=== PATIENT | male | born 1975 | race Caucasian/White ===

== ENCOUNTER 2021-02-14 06:49 | Inpatient (IN) | payer SELFPAY ==
[~2021-02-14] VITALS: Ht 185.4 cm; Wt 109.4 kg
[2021-02-14] MEDS ORDERED: IV NORMAL SALINE 1000ML BAG 1,000 ML IV SCH (07:15)
[2021-02-14] MEDS ORDERED: KETOROLAC 30 MG/ML VIAL. IVP ONE (07:15)
[2021-02-14] MEDS ORDERED: ONDANSETRON PF 4 MG/2 ML VIAL. IVP ONE (07:15)
--- NOTE | 2021-02-14 07:52 | PHYS DOC ---
Past Medical History Past Medical History IV drug use Past Surgical History: No Surgical History Smoking Status: Current Every Day Smoker Alcohol Use: None Drug Use: Amphetamine, Marijuana General Adult EDM: Chief Complaint: NAUSEA/VOMITING/DIARRHEA HPI: HPI: 45-year-old male with a history of IV drug abuse presents the emergency department complaining of bilateral mid back pain, sweats, nausea, vomiting, diarrhea for the last 24 hours. He denies any abdominal pain, shortness of breath, cough, recent drug use. He has not been vaccinated for Covid. He denies any recent travel, blood in the diarrhea or vomit, recent hospitalizations, recent antibiotic use Review of Systems: Review of Systems: Constitutional: Admits to chills, fatigue, denies fever. Eyes: Denies change in vision, pain. HENT: Denies congestion or sore throat. Respiratory: Denies cough or shortness of breath. Cardiovascular: Denies chest pain or edema. GI: Denies abdominal pain, admits to nausea vomiting diarrhea : Admits to dark-colored urine, denies pain with urination. Musculoskeletal: Denies extremity pain, or trauma. Skin: Denies rash, skin change. Neurologic: Denies headache, focal weakness. Psychiatric: Denies depression or anxiety. All other systems reviewed as negative except for what was mentioned in the HPI. Heart Score: C/O Chest Pain: No Current Medications: Current Medications Medications (Trade) Dose Ordered Sig/[facility] Start Time Stop Time Status Last Admin Dose Admin Ketorolac Tromethamine (Toradol 30mg Vial) 15 mg 1X ONCE 02/14/21 07:15 02/14/21 07:16 UNV Ondansetron HCl (Zofran) 4 mg 1X ONCE 02/14/21 07:15 02/14/21 07:16 UNV Sodium Chloride 1,000 ml @ 1,000 mls/hr Q1H 02/14/21 07:15 02/14/21 08:14 UNV Allergies: Allergies: Nka Physical Exam: PE: Constitutional: No acute distress, non-toxic appearance. HENT: Atraumatic, bilateral external ears normal, nose normal. Forehead this way to palpation Eyes: PERRLA, EOMI, conjunctiva normal, no discharge. Neck: Normal range of motion, supple, no stridor. Cardiovascular: Heart rate regular rhythm. 2+ radial pulses Lungs & Thorax: No respiratory distress, symmetrical expansion. Abdomen: Soft, no tenderness Skin: Warm, dry. Extremities: No tenderness, no cyanosis, ROM intact, no edema. Neurologic: Alert and oriented X 3, normal motor function, normal sensory function, no focal deficits noted. Non ataxic gait. GCS 15. Psychologic: Affect normal, judgment normal, mood normal. Current Patient Data: Labs: Laboratory Tests Test 02/14/21 07:24 02/14/21 07:37 02/14/21 07:39 Urine Collection Type Unknown Urine Color [facility] Urine Clarity Clear Urine pH 6.0 (<5.0-8.0) Urine Specific [place] 1.025 (1.000-1.030) Urine Protein 30 mg/dL (NEG-TRACE) Urine Glucose (UA) 100 mg/dL (NEG) Urine Ketones (Stick) >=80 mg/dL (NEG) Urine Blood Negative (NEG) Urine Nitrite Negative (NEG) Urine Bilirubin Large (NEG) Urine Urobilinogen Dipstick 4.0 mg/dL (0.2 mg/dL) Urine Leukocyte Esterase Moderate (NEG) Urine RBC 0 /HPF (0-2) Urine WBC 5-10 /HPF (0-4) Urine Squamous Epithelial Cells Mod /LPF Urine Bacteria 0 /HPF (0-FEW) Urine Mucus Mod /LPF Urine Opiates Screen Neg (NEG) Urine Methadone Screen Pos (NEG) Urine Barbiturates Neg (NEG) Urine Phencyclidine Screen Neg (NEG) Urine Amphetamine/Methamphetamine Neg (NEG) Urine Benzodiazepines Screen Pos (NEG) Urine Cocaine Screen Neg (NEG) Urine Cannabinoids Screen Neg (NEG) Urine Ethyl Alcohol Neg (NEG) White Blood Count 6.7 x10^3/uL (4.0-11.0) Red Blood Count 5.54 x10^6/uL (4.30-5.70) Hemoglobin 16.9 g/dL (13.0-17.5) Hematocrit 48.6 % (39.0-53.0) Mean Corpuscular Volume 88 fL (79-100) Mean Corpuscular Hemoglobin 30 pg (25-35) Mean Corpuscular Hemoglobin Concent 35 g/dL (31-37) Red Cell Distribution Width 13.9 % (11.5-14.5) Platelet Count 149 x10^3/uL (140-400) Neutrophils (%) (Auto) 67 % (31-73) Lymphocytes (%) (Auto) 18 % (24-48) Monocytes (%) (Auto) 11 % (0-9) Eosinophils (%) (Auto) 4 % (0-3) Basophils (%) (Auto) 1 % (0-3) Neutrophils # (Auto) 4.5 x10^3/uL (1.8-7.7) Lymphocytes # (Auto) 1.2 x10^3/uL (1.0-4.8) Monocytes # (Auto) 0.8 x10^3/uL (0.0-1.1) Eosinophils # (Auto) 0.2 x10^3/uL (0.0-0.7) Basophils # (Auto) 0.0 x10^3/uL (0.0-0.2) Sodium Level 138 mmol/L (136-145) Potassium Level 4.2 mmol/L (3.5-5.1) Chloride Level 98 mmol/L (98-107) Carbon Dioxide Level 25 mmol/L (21-32) Anion Gap 15 (6-14) Blood Urea Nitrogen 11 mg/dL (8-26) Creatinine 0.7 mg/dL (0.7-1.3) Estimated GFR (Cockcroft-Gault) 121.4 BUN/Creatinine Ratio 16 (6-20) Glucose Level 165 mg/dL (70-99) Calcium Level 9.4 mg/dL (8.5-10.1) Total Bilirubin 7.4 mg/dL (0.2-1.0) Aspartate Amino Transf (AST/SGOT) 1838 U/L (15-37) Alanine Aminotransferase (ALT/SGPT) 3820 U/L (16-63) Alkaline Phosphatase 341 U/L (46-116) Creatine Kinase 34 U/L (39-308) Total Protein 8.2 g/dL (6.4-8.2) Albumin 3.5 g/dL (3.4-5.0) Albumin/Globulin Ratio 0.7 (1.0-1.7) Lipase 81 U/L (73-393) Acetaminophen Level < 2 mcg/ml (10-30) Acetaminophen Last Dose Date Unknown Acetaminophen Last Dose Time Unknown SARS-CoV-2 RNA (YUMIKO) Negative (Negative) SARS-CoV-2 Antigen (Rapid) Negative (NEGATIVE) Vital Signs: Vital Signs Date Time Temp Pulse Resp B/P (MAP) Pulse Ox O2 Delivery O2 Flow Rate FiO2 02/14/21 07:10 98.0 86 16 133/93 99 Nasal Cannula 98.0 Radiology/Procedures: Radiology/Procedures: Study: XR CHEST 1V Indication: Flank pain. Comparison: None. Findings: The cardiomediastinal silhouette and ana are within normal limits. No localized airspace opacity, pleural effusion or pneumothorax. Impression: No acute radiographic abnormality of the chest. Electronically signed by: ROQUE REYNOLDS MD (02/14/2021 7:59 AM) PROCEDURE: ABDOMEN COMPLETE EXAM: Abdomen sonogram complete. HISTORY: Elevated alkaline phosphatase. Pain. TECHNIQUE: Sonographic imaging of the abdomen was performed. COMPARISON: None. FINDINGS: The liver is enlarged. There is hepatic steatosis. No focal hepatic lesion is seen. The gallbladder is unremarkable. The common bile duct is normal in caliber. The kidneys are normal in size. The spleen is enlarged, measuring 21 cm in maximum dimension. The pancreas, aorta and vena cava are partially obscured due to bowel gas IMPRESSION: 1. Hepatomegaly and hepatic steatosis. 2. Splenomegaly. Electronically signed by: Milady Duron MD (02/14/2021 10:03 AM) PROCEDURE: CT ABD PELV W/ IV CONTRST ONLY EXAMINATION: CT abdomen and pelvis with IV contrast. INDICATION:45 years, Male, flank pain, transaminitis. TECHNIQUE: Axial CT images of the abdomen and pelvis were obtained. Coronal and sagittal reformatted performed. COMPARISON: Ultrasound dated 02/14/2021. Exposure: One or more of the following individualized dose reduction techniques were utilized for this examination: 1. Automated exposure control 2. Adjustment of the mA and/or kV according to patient size 3. Use of iterative reconstruction technique. FINDINGS: LOWER CHEST: Unremarkable ABDOMEN/PELVIS: Mild hepatomegaly with diffuse steatosis, measures 18.8 cm in length.. No suspicious focal hepatic lesion. Mild gallbladder hydrops. No calcified cholelithiasis or pericholecystic fat stranding. No gallbladder wall thickening. No biliary ductal dilation. Similar splenomegaly measures up to 17.7 cm in length. Mildly atrophic pancreatic parenchyma with fat infiltration. No adrenal nodule. No hydronephrosis or nephrolithiasis in either kidney. No bowel obstruction or wall thickening. Uncomplicated duodenal diverticulum. Colonic diverticulosis without diverticulitis. Normal appendix. Normal caliber abdominal aorta. Mesenteric arteries and portal vein are patent. No pneumoper itoneum or ascites. Prominent to mildly enlarged periportal and portacaval lymph nodes, likely reactive. Mildly enlarged preaortic lymph node measures 1.4 cm in short axis (series 2 image 47). Unremarkable urinary bladder. Coarse calcifications in the posterior. MUSCULOSKELETAL: No acute osseous process. Small fat-containing umbilical and periumbilical hernias. IMPRESSION: 1. No acute abnormality in the abdomen or pelvis, specifically no obstructive uropathy. 2. Hepatosplenomegaly with mild hepatic steatosis. 3. Few colonic diverticulosis without diverticulitis. 4. Mildly enlarged preaortic lymph node, nonspecific. Electronically signed by: Dannielle Guerra MD (02/14/2021 11:37 AM) Course & Med Decision Making: Course & Med Decision Making Labs are revealing for transaminitis of unknown origin, differential including viral hepatitis, further labs to follow with GI consult. Acetaminophen level was normal and patient does not have admitted risk of occult acetaminophen overdose. Patient does have a history of IV drug abuse. Patient will be admitted to Dr. Mccoy Departure Departure Impression: Primary Impression: Transaminitis Disposition: ADMITTED INPATIENT Admitting Physician: MEDINA Ortega) Condition: STABLE Referrals: NO PCP (PCP) DELANEY BENOIT DO Feb 14, 2021 07:52
[2021-02-14 07:57] LABS: BASO % 1 % (0-3); EOS # 0.2 x10^3/uL (0.0-0.7); EOS % 4 % (0-3); HEMATOCRIT 48.6 % (39.0-53.0); HEMOGLOBIN 16.9 g/dL (13.0-17.5); LYMPH # 1.2 x10^3/uL (1.0-4.8); LYMPH % 18 % (24-48); MEAN CORPUSCULAR HEMOGLOBIN 30 pg (25-35); MEAN CORPUSCULAR HGB CONC 35 g/dL (31-37); MEAN CORPUSCULAR VOLUME 88 fL (79-100); MONO # 0.8 x10^3/uL (0.0-1.1); MONO % 11 % (0-9); NEUT # 4.5 x10^3/uL (1.8-7.7); NEUT % 67 % (31-73); PLATELET COUNT 149 x10^3/uL (140-400); RED BLOOD COUNT 5.54 x10^6/uL (4.30-5.70); RED CELL DISTRIBUTION WIDTH 13.9 % (11.5-14.5); WHITE BLOOD COUNT 6.7 x10^3/uL (4.0-11.0)
[2021-02-14] MEDS ORDERED: IV NORMAL SALINE 1000ML BAG 1,000 ML IV ONE (08:00)
--- NOTE | 2021-02-14 08:01 | RAD ---
Study: XR CHEST 1V Indication: Flank pain. Comparison: None. Findings: The cardiomediastinal silhouette and ana are within normal limits. No localized airspace opacity, pl eural effusion or pneumothorax. Impression: No acute radiographic abnormality of the chest. Electronically signed by: ROQUE REYNOLDS MD (02/14/2021 7:59 AM) [id number]
[2021-02-14 08:11] LABS: BILIRUBIN,URINE LARGE (NEG); CLARITY,URINE CLEAR; COLOR,URINE ORANGE; NITRITE,URINE NEGATIVE (NEG); PROTEIN,URINE 30 mg/dL (NEG-TRACE)
[2021-02-14 08:12] LABS: CALCIUM 9.4 mg/dL (8.5-10.1); CREATININE 0.7 mg/dL (0.7-1.3); GFR 121.4; POTASSIUM 4.2 mmol/L (3.5-5.1)
[2021-02-14 08:23] LABS: ALBUMIN 3.5 g/dL (3.4-5.0); ALBUMIN/GLOBULIN RATIO 0.7 (1.0-1.7); TOTAL BILIRUBIN 7.4 mg/dL (0.2-1.0); TOTAL PROTEIN 8.2 g/dL (6.4-8.2)
[2021-02-14 08:28] LABS: BACTERIA,URINE 0 /HPF (0-FEW); RBC,URINE 0 /HPF (0-2)
[2021-02-14 08:30] LABS: BARBITURATES NEG (NEG); BENZODIAZEPINES POS (NEG); CANNABINOIDS NEG (NEG); COCAINE NEG (NEG); METHADONE POS (NEG); OPIATES NEG (NEG); PHENCYCLIDINE NEG (NEG)
[2021-02-14 08:33] LABS: AMPHETAMINE/METHAMPHETAMINE NEG (NEG)
--- NOTE | 2021-02-14 10:06 | RAD ---
EXAM: Abdomen sonogram complete. HISTORY: Elevated alkaline phosphatase. Pain. TECHNIQUE: Sonographic imaging of the abdomen was performed. COMPARISON: None. FINDINGS: The liver is enlarged. There is hepatic steatosis. No focal hepatic lesion is seen. The gal lbladder is unremarkable. The common bile duct is normal in caliber. The kidneys are normal in size. The spleen is enlarged, measuring 21 cm in maximum dimension. The pancreas, aorta and vena cava are p artially obscured due to bowel gas IMPRESSION: 1. Hepatomegaly and hepatic steatosis. 2. Splenomegaly. Electronically signed by: Milady Duron MD (02/14/2021 10:03 AM) [id number]
[2021-02-14 10:37] LABS: ACETAMIN < 2 mcg/ml (10-30)
[2021-02-14] MEDS ORDERED: CONTRAST GIVEN. MC PRN (11:15)
[2021-02-14] MEDS ORDERED: IOHEXOL 300 MG/ML 100ML VIAL. IV ONE (11:15)
--- NOTE | 2021-02-14 11:40 | RAD ---
EXAMINATION: CT abdomen and pelvis with IV contrast. INDICATION:45 years, Male, flank pain, transaminitis. TECHNIQUE: Axial CT images of the abdomen and pelvis were obtained. Coronal and sagittal reformatted performed. COMPARISON: Ultrasound dated 02/14/2021. Exposure: One or more of the following individualized dose reduction techniques were utilized for thi s examination: 1. Automated exposure control 2. Adjustment of the mA and/or kV according to patient size 3. Use of iterative reconstruction technique. FINDINGS: LOWER CHEST: Unremarkable ABDOMEN/PELVIS: Mild hepatomegaly with diffuse steatosis, measures 18.8 cm in length.. No suspicious focal hepatic le yvonne. Mild gallbladder hydrops. No calcified cholelithiasis or pericholecystic fat stranding. No gall bladder wall thickening. No biliary ductal dilation. Similar splenomegaly measures up to 17.7 cm in l ength. Mildly atrophic pancreatic parenchyma with fat infiltration. No adrenal nodule. No hydronephro sis or nephrolithiasis in either kidney. No bowel obstruction or wall thickening. Uncomplicated duodenal diverticulum. Colonic diverticulosis without diverticulitis. Normal appendix. Normal caliber abdominal aorta. Mesenteric arteries and port al vein are patent. No pneumoperitoneum or ascites. Prominent to mildly enlarged periportal and vladimir caval lymph nodes, likely reactive. Mildly enlarged preaortic lymph node measures 1.4 cm in short axi s (series 2 image 47). Unremarkable urinary bladder. Coarse calcifications in the posterior. MUSCULOSKELETAL: No acute osseous process. Small fat-containing umbilical and periumbilical hernias. IMPRESSION: 1. No acute abnormality in the abdomen or pelvis, specifically no obstructive uropathy. 2. Hepatosplenomegaly with mild hepatic steatosis. 3. Few colonic diverticulosis without diverticulitis. 4. Mildly enlarged preaortic lymph node, nonspecific. Electronically signed by: Dannielle Guerra MD (02/14/2021 11:37 AM) [facility]
[2021-02-14] MEDS ORDERED: ACETAMINOPHEN 325 MG TABLET. PO PRN ×2 (12:00→15:00)
[2021-02-14] MEDS ORDERED: ONDANSETRON PF 4 MG/2 ML VIAL. IVP PRN ×2 (12:00→15:00)
--- NOTE | 2021-02-14 12:00 | PDOC2 ---
GI CONSULT Date of Service: DATE: 02/14/21 TIME: 11:51 Reason For Consult: transaminitis HPI: HPI: 45 y/o male ill since Saturday. "Clinton off" that day, then later that night vomited (bilious). Vomiting has continued, also has some upper abdominal soreness attributed to retching. Associated also w/ cold sweats. Had a nosebleed. Denies precipitating events including travel and sick contacts. No reflux, dysphagia, hematemesis, chronic n/v or abd pain, diarrhea, hematochezia, melena, or weight loss. Hasn't stools since Sat or Sat, but typically no issues w/ constipation. No previous EGD or colonoscopy. No GB, liver, pancreas, or PUD history. Diverticulosis on imaging. H/o IVDU on methadone, h/o anxiety on Xanax. Reports chronic intermittent "kidney pain." Just hasn't gotten around to getting COVID vaccine yet. PMH: PMH: IVDU, nephrolithiasis, anxiety past HTN and HLD - no longer an issue w/ past intentional weight loss FH: Family History: Cancer (uncle - liver), DM Social History: Smoke: 1 pack per day ALCOHOL: other (no alcohol x 15 years, denies heavy use in the past) Drugs: Other (past IVDU) ROS: GEN: +chills, sweats HEENT: Denies blurred vision, sore throat CV: Denies chest pain RESP: Denies shortness of air, cough GI: Per HPI : Denies hematuria, dysuria ENDO: Denies weight changes NEURO: Denies confusion, dizziness MSK: Denies weakness, joint pain/swelling SKIN: Denies jaundice, pruritus Vitals: Vitals: Vital Signs Date Time Temp Pulse Resp B/P (MAP) Pulse Ox O2 Delivery O2 Flow Rate FiO2 02/14/21 07:10 98.0 86 16 133/93 99 Nasal Cannula 98.0 Labs: Labs: Laboratory Tests Test 02/14/21 07:24 02/14/21 07:37 02/14/21 07:39 Urine Collection Type Unknown Urine Color [place] Urine Clarity Clear Urine pH 6.0 (<5.0-8.0) Urine Specific [place] 1.025 (1.000-1.030) Urine Protein 30 mg/dL (NEG-TRACE) Urine Glucose (UA) 100 mg/dL (NEG) Urine Ketones (Stick) >=80 mg/dL (NEG) Urine Blood Negative (NEG) Urine Nitrite Negative (NEG) Urine Bilirubin Large (NEG) Urine Urobilinogen Dipstick 4.0 mg/dL (0.2 mg/dL) Urine Leukocyte Esterase Moderate (NEG) Urine RBC 0 /HPF (0-2) Urine WBC 5-10 /HPF (0-4) Urine Squamous Epithelial Cells Mod /LPF Urine Bacteria 0 /HPF (0-FEW) Urine Mucus Mod /LPF Urine Opiates Screen Neg (NEG) Urine Methadone Screen Pos (NEG) Urine Barbiturates Neg (NEG) Urine Phencyclidine Screen Neg (NEG) Urine Amphetamine/Methamphetamine Neg (NEG) Urine Benzodiazepines Screen Pos (NEG) Urine Cocaine Screen Neg (NEG) Urine Cannabinoids Screen Neg (NEG) Urine Ethyl Alcohol Neg (NEG) White Blood Count 6.7 x10^3/uL (4.0-11.0) Red Blood Count 5.54 x10^6/uL (4.30-5.70) Hemoglobin 16.9 g/dL (13.0-17.5) Hematocrit 48.6 % (39.0-53.0) Mean Corpuscular Volume 88 fL (79-100) Mean Corpuscular Hemoglobin 30 pg (25-35) Mean Corpuscular Hemoglobin Concent 35 g/dL (31-37) Red Cell Distribution Width 13.9 % (11.5-14.5) Platelet Count 149 x10^3/uL (140-400) Neutrophils (%) (Auto) 67 % (31-73) Lymphocytes (%) (Auto) 18 % (24-48) Monocytes (%) (Auto) 11 % (0-9) Eosinophils (%) (Auto) 4 % (0-3) Basophils (%) (Auto) 1 % (0-3) Neutrophils # (Auto) 4.5 x10^3/uL (1.8-7.7) Lymphocytes # (Auto) 1.2 x10^3/uL (1.0-4.8) Monocytes # (Auto) 0.8 x10^3/uL (0.0-1.1) Eosinophils # (Auto) 0.2 x10^3/uL (0.0-0.7) Basophils # (Auto) 0.0 x10^3/uL (0.0-0.2) Sodium Level 138 mmol/L (136-145) Potassium Level 4.2 mmol/L (3.5-5.1) Chloride Level 98 mmol/L (98-107) Carbon Dioxide Level 25 mmol/L (21-32) Anion Gap 15 (6-14) Blood Urea Nitrogen 11 mg/dL (8-26) Creatinine 0.7 mg/dL (0.7-1.3) Estimated GFR (Cockcroft-Gault) 121.4 BUN/Creatinine Ratio 16 (6-20) Glucose Level 165 mg/dL (70-99) Calcium Level 9.4 mg/dL (8.5-10.1) Total Bilirubin 7.4 mg/dL (0.2-1.0) Aspartate Amino Transf (AST/SGOT) 1838 U/L (15-37) Alanine Aminotransferase (ALT/SGPT) 3820 U/L (16-63) Alkaline Phosphatase 341 U/L (46-116) Creatine Kinase 34 U/L (39-308) Total Protein 8.2 g/dL (6.4-8.2) Albumin 3.5 g/dL (3.4-5.0) Albumin/Globulin Ratio 0.7 (1.0-1.7) Lipase 81 U/L (73-393) Acetaminophen Level < 2 mcg/ml (10-30) Acetaminophen Last Dose Date Unknown Acetaminophen Last Dose Time Unknown SARS-CoV-2 RNA (YUMIKO) Negative (Negative) SARS-CoV-2 Antigen (Rapid) Negative (NEGATIVE) Allergies: Coded Allergies: No Known Drug Allergies (Unverified , 02/14/21) Medications: Current Medications Medications (Trade) Dose Ordered Sig/Damián Route PRN Reason Start Time Stop Time Status Last Admin Dose Admin Sodium Chloride 1,000 ml @ 1,000 mls/hr Q1H IV 02/14/21 07:15 02/14/21 08:18 DC 02/14/21 08:45 Ondansetron HCl (Zofran) 4 mg 1X ONCE IVP 02/14/21 07:15 02/14/21 08:18 DC 02/14/21 08:46 Ketorolac Tromethamine (Toradol 30mg Vial) 15 mg 1X ONCE IVP 02/14/21 07:15 02/14/21 08:18 DC 02/14/21 08:45 Sodium Chloride 1,000 ml @ 1,000 mls/hr 1X ONCE IV 02/14/21 08:00 02/14/21 08:59 DC 02/14/21 08:46 Iohexol (Omnipaque 300 Mg/ml) 75 ml 1X ONCE IV 02/14/21 11:15 02/14/21 11:16 DC 02/14/21 11:22 Imaging: Imaging: CXR Impression: No acute radiographic abnormality of the chest. Abd US IMPRESSION: 1. Hepatomegaly and hepatic steatosis. 2. Splenomegaly. Normal CBD and GB. CT A/P ABDOMEN/PELVIS: 1. No acute abnormality in the abdomen or pelvis, specifically no obstructive uropathy. 2. Hepatosplenomegaly with mild hepatic steatosis. 3. Few colonic diverticulosis without diverticulitis. 4. Mildly enlarged preaortic lymph node, nonspecific. PE: GEN: NAD HEENT: Atraumatic, PERRL LUNGS: CTAB HEART: RRR ABD: NABS, S/ND/NT EXTREMITY: No edema SKIN: No rashes, no jaundice NEURO/PSYCH: A & O 3 A/P: A/P: Vomiting, sweats/chills, upper abdominal soreness Significantly abnormal LFTs Hepatomegaly, hepatic steatosis, splenomegaly CRC screen - none, average risk Diverticulosis - duodenum colon H/o IVDU on methadone COVID negative -- Check viral Hepatitis panel, follow labs. Says he's thirsty and hungry - okay to try clears, ADAT per GI. LORETO LÓPEZ Feb 14, 2021 12:00
--- NOTE | 2021-02-14 12:24 | PDOC1 ---
History and Physical Date of Service: DOS: DATE: 02/14/21 TIME: 12:21 Chief Complaint: Chief Complain: Flank pain History of Present Illness: HPI: Patient is a 45-year-old male with history of IV drug abuse who comes with dark urine for the last 24 hours. Patient also endorses mild flank pain bilaterally, nausea vomiting, chills and some diarrhea. Denies any abdominal pain, shortness of breath, chest pain, recent drug use, recent travel, seafood or exotic food intake. Patient is not vaccinated for Covid. Past Medical/Surgical History: PMH/PSH: Past Medical History: IV drug use Past Surgical History: No Surgical History Allergies: Allergies: Coded Allergies: No Known Drug Allergies (Unverified , 02/14/21) Family History: Family History: Reviewed with no relevant findings Social History: Social History: Smoking Status: Current Every Day Smoker Alcohol Use: None Drug Use: Amphetamine, Marijuana Current Medications: Current Medications Current Medications Sodium Chloride 1,000 ml @ 1,000 mls/hr Q1H IV Last administered on 02/14/21at 08:45; Start 02/14/21 at 07:15; Stop 02/14/21 at 08:18; Status DC Ondansetron HCl (Zofran) 4 mg 1X ONCE IVP Last administered on 02/14/21at 08:46; Start 02/14/21 at 07:15; Stop 02/14/21 at 08:18; Status DC Ketorolac Tromethamine (Toradol 30mg Vial) 15 mg 1X ONCE IVP Last administered on 02/14/21at 08:45; Start 02/14/21 at 07:15; Stop 02/14/21 at 08:18; Status DC Sodium Chloride 1,000 ml @ 1,000 mls/hr 1X ONCE IV Last administered on 02/14/21at 08:46; Start 02/14/21 at 08:00; Stop 02/14/21 at 08:59; Status DC Iohexol (Omnipaque 300 Mg/ml) 75 ml 1X ONCE IV Last administered on 02/14/21at 11:22; Start 02/14/21 at 11:15; Stop 02/14/21 at 11:16; Status DC Info (CONTRAST GIVEN -- Rx MONITORING) 1 each PRN DAILY PRN MC SEE COMMENTS; Start 02/14/21 at 11:15; Stop 02/16/21 at 11:14 Ondansetron HCl (Zofran) 4 mg PRN Q8HRS PRN IVP NAUSEA/VOMITING; Start 02/14/21 at 12:00; Stop 02/15/21 at 11:59 Acetaminophen (Tylenol) 650 mg PRN Q4HRS PRN PO FEVER > 100.3'F; Start 02/14/21 at 12:00; Stop 02/15/21 at 11:59 Famotidine (Pepcid Vial) 20 mg DAILY IVP ; Start 02/14/21 at 12:00 ROS: Review of Systems Review of System REVIEW OF SYSTEMS: GENERAL: Denies weakness SKIN: No bruising, hair changes or rashes. EYES: No blurred, double or loss of vision. NOSE AND THROAT: No history of nosebleeds, hoarseness or sore throat. HEART: No history of palpitations, chest pain or shortness of breath on exertion. LUNGS: Denies cough, hemoptysis, wheezing or shortness of breath. GASTROINTESTINAL: Denies changes in appetite, nausea, vomiting, diarrhea or constipation. GENITOURINARY: No history of frequency, urgency, hesitancy or nocturia. NEUROLOGIC: Denies history of numbness, tingling, or tremor. PSYCHIATRIC: No history of panic, anxiety or depression. ENDOCRINE: No history of heat or cold intolerance, polyuria or polydipsia. EXTREMITIES: Denies joint pain, pain on walking or stiffness. Physical Exam: Vital Signs: Vital Signs Date Time Temp Pulse Resp B/P (MAP) Pulse Ox O2 Delivery O2 Flow Rate FiO2 02/14/21 07:10 98.0 86 16 133/93 99 Nasal Cannula 98.0 Physcial Exam: GEN: No apparent distress. Alert and oriented HEENT: Normal cephalic, atraumatic, external auditory canals are patent EYES: Extraocular muscles are intact, pupil are equally round and reactive to light and accommodation MUSCULOSKELETAL: Well developed , well nourished, good range of motion ENDOCRINE: No thyromegaly was palpated LYMPHATICS: No cervical chain or axillary nodes were noted HEMATOPOIETIC: No bruising NECK: Supple, no JVD, no thyromegaly was noted LUNGS: Clear to auscultation in all lung castaneda without rhonchi or wheezing HEART: RRR, S!, S2 present. Peripheral pulses intact, no obvious murmurs noted ABDOMEN: Soft, nontender. Positive bowel sounds, no organomegaly, normal bowel sounds EXTREMITIES: Without clubbing, cyanosis, or edema. Pedal pulses intact. Negative Homans sign NEUROLOGIC: Normal speech and tone. A&O x 3, moves all extremities, no obvious focal deficits PSYCHIATRIC: Normal affect, normal mood. Stable SKIN: No ulcerations or rashes, good skin turgor, no jaundice VASCULAR: Good capillary refill, neurovascular bundle appears to be intact Labs: Labs: Laboratory Tests Test 02/14/21 07:24 02/14/21 07:37 02/14/21 07:39 Urine Collection Type Unknown Urine Color [place] Urine Clarity Clear Urine pH 6.0 (<5.0-8.0) Urine Specific [place] 1.025 (1.000-1.030) Urine Protein 30 mg/dL (NEG-TRACE) Urine Glucose (UA) 100 mg/dL (NEG) Urine Ketones (Stick) >=80 mg/dL (NEG) Urine Blood Negative (NEG) Urine Nitrite Negative (NEG) Urine Bilirubin Large (NEG) Urine Urobilinogen Dipstick 4.0 mg/dL (0.2 mg/dL) Urine Leukocyte Esterase Moderate (NEG) Urine RBC 0 /HPF (0-2) Urine WBC 5-10 /HPF (0-4) Urine Squamous Epithelial Cells Mod /LPF Urine Bacteria 0 /HPF (0-FEW) Urine Mucus Mod /LPF Urine Opiates Screen Neg (NEG) Urine Methadone Screen Pos (NEG) Urine Barbiturates Neg (NEG) Urine Phencyclidine Screen Neg (NEG) Urine Amphetamine/Methamphetamine Neg (NEG) Urine Benzodiazepines Screen Pos (NEG) Urine Cocaine Screen Neg (NEG) Urine Cannabinoids Screen Neg (NEG) Urine Ethyl Alcohol Neg (NEG) White Blood Count 6.7 x10^3/uL (4.0-11.0) Red Blood Count 5.54 x10^6/uL (4.30-5.70) Hemoglobin 16.9 g/dL (13.0-17.5) Hematocrit 48.6 % (39.0-53.0) Mean Corpuscular Volume 88 fL (79-100) Mean Corpuscular Hemoglobin 30 pg (25-35) Mean Corpuscular Hemoglobin Concent 35 g/dL (31-37) Red Cell Distribution Width 13.9 % (11.5-14.5) Platelet Count 149 x10^3/uL (140-400) Neutrophils (%) (Auto) 67 % (31-73) Lymphocytes (%) (Auto) 18 % (24-48) Monocytes (%) (Auto) 11 % (0-9) Eosinophils (%) (Auto) 4 % (0-3) Basophils (%) (Auto) 1 % (0-3) Neutrophils # (Auto) 4.5 x10^3/uL (1.8-7.7) Lymphocytes # (Auto) 1.2 x10^3/uL (1.0-4.8) Monocytes # (Auto) 0.8 x10^3/uL (0.0-1.1) Eosinophils # (Auto) 0.2 x10^3/uL (0.0-0.7) Basophils # (Auto) 0.0 x10^3/uL (0.0-0.2) Sodium Level 138 mmol/L (136-145) Potassium Level 4.2 mmol/L (3.5-5.1) Chloride Level 98 mmol/L (98-107) Carbon Dioxide Level 25 mmol/L (21-32) Anion Gap 15 (6-14) Blood Urea Nitrogen 11 mg/dL (8-26) Creatinine 0.7 mg/dL (0.7-1.3) Estimated GFR (Cockcroft-Gault) 121.4 BUN/Creatinine Ratio 16 (6-20) Glucose Level 165 mg/dL (70-99) Calcium Level 9.4 mg/dL (8.5-10.1) Total Bilirubin 7.4 mg/dL (0.2-1.0) Aspartate Amino Transf (AST/SGOT) 1838 U/L (15-37) Alanine Aminotransferase (ALT/SGPT) 3820 U/L (16-63) Alkaline Phosphatase 341 U/L (46-116) Creatine Kinase 34 U/L (39-308) Total Protein 8.2 g/dL (6.4-8.2) Albumin 3.5 g/dL (3.4-5.0) Albumin/Globulin Ratio 0.7 (1.0-1.7) Lipase 81 U/L (73-393) Acetaminophen Level < 2 mcg/ml (10-30) Acetaminophen Last Dose Date Unknown Acetaminophen Last Dose Time Unknown SARS-CoV-2 RNA (YUMIKO) Negative (Negative) SARS-CoV-2 Antigen (Rapid) Negative (NEGATIVE) Laboratory Tests Test 02/14/21 07:24 02/14/21 07:37 02/14/21 07:39 Urine Collection Type Unknown Urine Color [place] Urine Clarity Clear Urine pH 6.0 (<5.0-8.0) Urine Specific [place] 1.025 (1.000-1.030) Urine Protein 30 mg/dL (NEG-TRACE) Urine Glucose (UA) 100 mg/dL (NEG) Urine Ketones (Stick) >=80 mg/dL (NEG) Urine Blood Negative (NEG) Urine Nitrite Negative (NEG) Urine Bilirubin Large (NEG) Urine Urobilinogen Dipstick 4.0 mg/dL (0.2 mg/dL) Urine Leukocyte Esterase Moderate (NEG) Urine RBC 0 /HPF (0-2) Urine WBC 5-10 /HPF (0-4) Urine Squamous Epithelial Cells Mod /LPF Urine Bacteria 0 /HPF (0-FEW) Urine Mucus Mod /LPF Urine Opiates Screen Neg (NEG) Urine Methadone Screen Pos (NEG) Urine Barbiturates Neg (NEG) Urine Phencyclidine Screen Neg (NEG) Urine Amphetamine/Methamphetamine Neg (NEG) Urine Benzodiazepines Screen Pos (NEG) Urine Cocaine Screen Neg (NEG) Urine Cannabinoids Screen Neg (NEG) Urine Ethyl Alcohol Neg (NEG) White Blood Count 6.7 x10^3/uL (4.0-11.0) Red Blood Count 5.54 x10^6/uL (4.30-5.70) Hemoglobin 16.9 g/dL (13.0-17.5) Hematocrit 48.6 % (39.0-53.0) Mean Corpuscular Volume 88 fL (79-100) Mean Corpuscular Hemoglobin 30 pg (25-35) Mean Corpuscular Hemoglobin Concent 35 g/dL (31-37) Red Cell Distribution Width 13.9 % (11.5-14.5) Platelet Count 149 x10^3/uL (140-400) Neutrophils (%) (Auto) 67 % (31-73) Lymphocytes (%) (Auto) 18 % (24-48) Monocytes (%) (Auto) 11 % (0-9) Eosinophils (%) (Auto) 4 % (0-3) Basophils (%) (Auto) 1 % (0-3) Neutrophils # (Auto) 4.5 x10^3/uL (1.8-7.7) Lymphocytes # (Auto) 1.2 x10^3/uL (1.0-4.8) Monocytes # (Auto) 0.8 x10^3/uL (0.0-1.1) Eosinophils # (Auto) 0.2 x10^3/uL (0.0-0.7) Basophils # (Auto) 0.0 x10^3/uL (0.0-0.2) Sodium Level 138 mmol/L (136-145) Potassium Level 4.2 mmol/L (3.5-5.1) Chloride Level 98 mmol/L (98-107) Carbon Dioxide Level 25 mmol/L (21-32) Anion Gap 15 (6-14) Blood Urea Nitrogen 11 mg/dL (8-26) Creatinine 0.7 mg/dL (0.7-1.3) Estimated GFR (Cockcroft-Gault) 121.4 BUN/Creatinine Ratio 16 (6-20) Glucose Level 165 mg/dL (70-99) Calcium Level 9.4 mg/dL (8.5-10.1) Total Bilirubin 7.4 mg/dL (0.2-1.0) Aspartate Amino Transf (AST/SGOT) 1838 U/L (15-37) Alanine Aminotransferase (ALT/SGPT) 3820 U/L (16-63) Alkaline Phosphatase 341 U/L (46-116) Creatine Kinase 34 U/L (39-308) Total Protein 8.2 g/dL (6.4-8.2) Albumin 3.5 g/dL (3.4-5.0) Albumin/Globulin Ratio 0.7 (1.0-1.7) Lipase 81 U/L (73-393) Acetaminophen Level < 2 mcg/ml (10-30) Acetaminophen Last Dose Date Unknown Acetaminophen Last Dose Time Unknown SARS-CoV-2 RNA (YUMIKO) Negative (Negative) SARS-CoV-2 Antigen (Rapid) Negative (NEGATIVE) Images: Images PROCEDURE: CT ABD PELV W/ IV CONTRST ONLY IMPRESSION: 1. No acute abnormality in the abdomen or pelvis, specifically no obstructive uropathy. 2. Hepatosplenomegaly with mild hepatic steatosis. 3. Few colonic diverticulosis without diverticulitis. 4. Mildly enlarged preaortic lymph node, nonspecific. PROCEDURE: ABDOMEN COMPLETE IMPRESSION: 1. Hepatomegaly and hepatic steatosis. 2. Splenomegaly. CXR Negative Assessment/Plan Assessment/Plan Acute bilateral flank pain Severe transaminitis Hyperbilirubinemia Hepatomegaly History of IV drug abuse Polysubstance abuse positivity Obesity class I Admit to hospitalist service for further management Trend LFTs GI consult Any acute hepatitis panel Pending direct bilirubin Pending HIV screen Lovenox for DVT prophylaxis Protonix GI prophylaxis ADA diet Full code Discussed with RN and SW Disposition inpatient management as above Surrogate decision maker is Kasia Downing Justifications for Admission Other Justification JOSE GRIJALVA MD Feb 14, 2021 12:24
[2021-02-14] MEDS ORDERED: POLYETHYLENE GLYCOL 3350 17 GM PACKET. PO PRN (12:30)
[2021-02-14] MEDS: FAMOTIDINE 20 MG/2 ML VIAL IVP SCH (13:01)
[2021-02-14 14:55] LABS: PROTHROMBIN TIME PATIENT 12.9 SEC (11.7-14.0)
[2021-02-14] MEDS ORDERED: SENNOSIDES 8.6 MG TABLET PO PRN (15:00)
[2021-02-14] MEDS ORDERED: DEXTROSE 50% 25 GM / 50ML DISP.SYRIN. IV PRN (15:00)
[2021-02-14] MEDS ORDERED: DOCUSATE SODIUM 100 MG CAPSULE. PO PRN (15:00)
[2021-02-14] MEDS ORDERED: PROCHLORPERAZINE 10 MG/2 ML VIAL. IV PRN (15:00)
[2021-02-14] MEDS ORDERED: METH-572 PO (21:51)
[2021-02-14] MEDS ORDERED: IBUP-1007 PO (21:51)
[2021-02-14] MEDS: NICOTINE 14MG PATCH. TD PRN (22:14)
[2021-02-14] MEDS: ENOXAPARIN 40 MG/0.4 ML SYRINGE. SQ SCH (22:17)
[2021-02-14] MEDS: IV NORMAL SALINE 1000ML BAG 1,000 ML IV SCH (22:17)
[2021-02-14 23:00] VITALS: BP 118/77
[2021-02-15] MEDS: IV NORMAL SALINE 1000ML BAG 1,000 ML IV SCH ×3 (01:05→20:31)
[2021-02-15 03:00] VITALS: BP 141/92
[2021-02-15 06:54] LABS: BASO % 1 % (0-3); EOS # 0.2 x10^3/uL (0.0-0.7); EOS % 4 % (0-3); HEMATOCRIT 41.6 % (39.0-53.0); HEMOGLOBIN 14.2 g/dL (13.0-17.5); LYMPH # 2.5 x10^3/uL (1.0-4.8); LYMPH % 42 % (24-48); MEAN CORPUSCULAR HEMOGLOBIN 31 pg (25-35); MEAN CORPUSCULAR HGB CONC 34 g/dL (31-37); MEAN CORPUSCULAR VOLUME 89 fL (79-100); MONO # 0.7 x10^3/uL (0.0-1.1); MONO % 12 % (0-9); NEUT # 2.6 x10^3/uL (1.8-7.7); NEUT % 42 % (31-73); PLATELET COUNT 138 x10^3/uL (140-400); RED BLOOD COUNT 4.65 x10^6/uL (4.30-5.70); WHITE BLOOD COUNT 6.1 x10^3/uL (4.0-11.0)
[2021-02-15 07:00] VITALS: BP 121/88
[2021-02-15 07:37] LABS: ALBUMIN 2.6 g/dL (3.4-5.0); ALBUMIN/GLOBULIN RATIO 0.8 (1.0-1.7); CALCIUM 8.2 mg/dL (8.5-10.1); CREATININE 0.8 mg/dL (0.7-1.3); GFR 104.1; MAGNESIUM 2.1 mg/dL (1.8-2.4); PHOSPHORUS 2.6 mg/dL (2.6-4.7); POTASSIUM 3.8 mmol/L (3.5-5.1); TOTAL BILIRUBIN 5.1 mg/dL (0.2-1.0)
[2021-02-15] MEDS ORDERED: METHADONE 5 MG/5 ML SOLUTION. PEG SCH (09:00)
[2021-02-15] MEDS: FAMOTIDINE 20 MG/2 ML VIAL IVP SCH (09:01)
[2021-02-15] MEDS: NICOTINE 14MG PATCH. TD PRN (09:11)
[2021-02-15] MEDS: METHADONE (DAILY MAINT DOSE) 100 MG/100 ML SOLUTION PO SCH (09:16)
--- NOTE | 2021-02-15 09:40 | PDOC ---
[facility] PROGRESS NOTE Date of Service DOS: DATE: 02/15/21 TIME: 09:23 Chief Complaint Chief Complaint CC: Flank pain Transaminitis IVDU History of Present Illness History of Present Illness HPI: Patient is a 45-year-old male with history of IV drug abuse who comes with dark urine for the last 24 hours. Patient also endorses mild flank pain bilaterally, nausea vomiting, chills and some diarrhea. Denies any abdominal pain, shortness of breath, chest pain, recent drug use, recent travel, seafood or exotic food intake. Patient is not vaccinated for Covid. 02/15: Patient seen and examined. Patient felt clammy and slightly jaundiced. Chart reviewed. Verified methadone card. Called pharmacy and discussed with RN next methadone dose due to apparent withdrawal symptoms. Vitals/I&O Vitals/I&O: Vital Signs Date Time Temp Pulse Resp B/P (MAP) Pulse Ox O2 Delivery O2 Flow Rate FiO2 02/15/21 07:00 97.8 72 15 121/88 (99) 95 Room Air 97.8 I & O 02/14/21 02/14/21 02/15/21 15:00 23:00 07:00 Intake Total 100 ml Balance 100 ml Physical Exam Physical Exam: slightly jaundiced. felt clammy to touch. General: Alert, Oriented X3 Skin: No rashes Labs Labs: Laboratory Tests Test 02/14/21 14:10 02/15/21 06:30 Prothrombin Time 12.9 SEC (11.7-14.0) Prothromb Time International Ratio 1.0 (0.8-1.1) Direct Bilirubin 5.6 mg/dL (0.0-0.2) 4.4 mg/dL (0.0-0.2) Hepatitis A IgM Antibody Nonreactive (Nonreactive) Hepatitis B Surface Antigen Nonreactive (Nonreactive) Hepatitis B Core IgM Antibody Nonreactive (Nonreactive) Hepatitis C IgG Antibody Reactive (Nonreactive) HIV (1&2) Antibody Screen Nonreactive (Nonreactive) White Blood Count 6.1 x10^3/uL (4.0-11.0) Red Blood Count 4.65 x10^6/uL (4.30-5.70) Hemoglobin 14.2 g/dL (13.0-17.5) Hematocrit 41.6 % (39.0-53.0) Mean Corpuscular Volume 89 fL (79-100) Mean Corpuscular Hemoglobin 31 pg (25-35) Mean Corpuscular Hemoglobin Concent 34 g/dL (31-37) Red Cell Distribution Width 14.0 % (11.5-14.5) Platelet Count 138 x10^3/uL (140-400) Neutrophils (%) (Auto) 42 % (31-73) Lymphocytes (%) (Auto) 42 % (24-48) Monocytes (%) (Auto) 12 % (0-9) Eosinophils (%) (Auto) 4 % (0-3) Basophils (%) (Auto) 1 % (0-3) Neutrophils # (Auto) 2.6 x10^3/uL (1.8-7.7) Lymphocytes # (Auto) 2.5 x10^3/uL (1.0-4.8) Monocytes # (Auto) 0.7 x10^3/uL (0.0-1.1) Eosinophils # (Auto) 0.2 x10^3/uL (0.0-0.7) Basophils # (Auto) 0.0 x10^3/uL (0.0-0.2) Sodium Level 138 mmol/L (136-145) Potassium Level 3.8 mmol/L (3.5-5.1) Chloride Level 104 mmol/L (98-107) Carbon Dioxide Level 23 mmol/L (21-32) Anion Gap 11 (6-14) Blood Urea Nitrogen 10 mg/dL (8-26) Creatinine 0.8 mg/dL (0.7-1.3) Estimated GFR (Cockcroft-Gault) 104.1 BUN/Creatinine Ratio 13 (6-20) Glucose Level 140 mg/dL (70-99) Calcium Level 8.2 mg/dL (8.5-10.1) Phosphorus Level 2.6 mg/dL (2.6-4.7) Magnesium Level 2.1 mg/dL (1.8-2.4) Total Bilirubin 5.1 mg/dL (0.2-1.0) Aspartate Amino Transf (AST/SGOT) 628 U/L (15-37) Alanine Aminotransferase (ALT/SGPT) 2075 U/L (16-63) Alkaline Phosphatase 237 U/L (46-116) Total Protein 6.0 g/dL (6.4-8.2) Albumin 2.6 g/dL (3.4-5.0) Albumin/Globulin Ratio 0.8 (1.0-1.7) Review of Systems Review of Systems: no rashes. no vomiting. Assessment and Plan Assessmemt and Plan Problems Medical Problems: (1) Transaminitis Status: Acute Flank pain Transaminitis IVDU Plan: Resumed patient on methadone 60mg q d, continue this Awaiting transaminitis/hepatitis workup, follow up when completed Trend labs Appreciate GI input IV fluids PO/OT Encourage PO intake Full code Home meds DVT prophylaxis Comment Review of Relevant I have reviewed the following items bell (where applicable) has been applied. Medications: Current Medications Medications (Trade) Dose Ordered Sig/Damián Route PRN Reason Start Time Stop Time Status Last Admin Dose Admin Iohexol (Omnipaque 300 Mg/ml) 75 ml 1X ONCE IV 02/14/21 11:15 02/14/21 11:16 DC 02/14/21 11:22 Ondansetron HCl (Zofran) 4 mg PRN Q8HRS PRN IVP NAUSEA/VOMITING 02/14/21 12:00 02/15/21 11:59 02/14/21 22:18 Famotidine (Pepcid Vial) 20 mg DAILY IVP 02/14/21 12:00 02/15/21 09:01 Sodium Chloride 1,000 ml @ 100 mls/hr Q10H IV 02/14/21 15:00 02/15/21 09:10 Enoxaparin Sodium (Lovenox 40mg Syringe) 40 mg Q24H SQ 02/14/21 21:00 02/14/21 22:17 Nicotine (Nicoderm Cq 14mg) 1 patch PRN DAILY PRN TD SMOKING CESSATION 02/14/21 22:15 02/15/21 09:11 Methadone HCl (Dolophine) 60 mg DAILY PO 02/15/21 09:00 02/15/21 09:16 Justifications for Admission Other Justification Acute flank pain and transaminitis JASS IBARRA III DO Feb 15, 2021 09:39
--- NOTE | 2021-02-15 09:59 | PDOC ---
Date of Service: DATE: 02/15/21 TIME: 09:55 Subjective: Subjective: Keeping food down today but still not eating "normally." D/w Dr. Martinez/med students re: methadone. Objective: Vital Signs: Vital Signs Date Time Temp Pulse Resp B/P (MAP) Pulse Ox O2 Delivery O2 Flow Rate FiO2 02/15/21 07:00 97.8 72 15 121/88 (99) 95 Room Air 97.8 Labs: Laboratory Tests Test 02/14/21 14:10 02/15/21 06:30 Prothrombin Time 12.9 SEC Prothromb Time International Ratio 1.0 Direct Bilirubin 5.6 mg/dL 4.4 mg/dL Hepatitis A IgM Antibody Nonreactive Hepatitis B Surface Antigen Nonreactive Hepatitis B Core IgM Antibody Nonreactive Hepatitis C IgG Antibody Reactive HIV (1&2) Antibody Screen Nonreactive White Blood Count 6.1 x10^3/uL Red Blood Count 4.65 x10^6/uL Hemoglobin 14.2 g/dL Hematocrit 41.6 % Mean Corpuscular Volume 89 fL Mean Corpuscular Hemoglobin 31 pg Mean Corpuscular Hemoglobin Concent 34 g/dL Red Cell Distribution Width 14.0 % Platelet Count 138 x10^3/uL Neutrophils (%) (Auto) 42 % Lymphocytes (%) (Auto) 42 % Monocytes (%) (Auto) 12 % Eosinophils (%) (Auto) 4 % Basophils (%) (Auto) 1 % Neutrophils # (Auto) 2.6 x10^3/uL Lymphocytes # (Auto) 2.5 x10^3/uL Monocytes # (Auto) 0.7 x10^3/uL Eosinophils # (Auto) 0.2 x10^3/uL Basophils # (Auto) 0.0 x10^3/uL Sodium Level 138 mmol/L Potassium Level 3.8 mmol/L Chloride Level 104 mmol/L Carbon Dioxide Level 23 mmol/L Anion Gap 11 Blood Urea Nitrogen 10 mg/dL Creatinine 0.8 mg/dL Estimated GFR (Cockcroft-Gault) 104.1 BUN/Creatinine Ratio 13 Glucose Level 140 mg/dL Calcium Level 8.2 mg/dL Phosphorus Level 2.6 mg/dL Magnesium Level 2.1 mg/dL Total Bilirubin 5.1 mg/dL Aspartate Amino Transf (AST/SGOT) 628 U/L Alanine Aminotransferase (ALT/SGPT) 2075 U/L Alkaline Phosphatase 237 U/L Total Protein 6.0 g/dL Albumin 2.6 g/dL Albumin/Globulin Ratio 0.8 PE: GEN: NAD LUNGS: CTAB HEART: RRR ABD: NABS, S/ND/NT NEURO/PSYCH: A & O 3 A/P: Vomiting, sweats/chills, upper abdominal soreness - some better Mild thrombocytopenia, elevated LFTs - better Hep C Ab + (PCR pending) Hepatomegaly, hepatic steatosis, splenomegaly COVID negative -- ?check EBV and CMV Await Hep C PCR. Justicifation of Admission Dx: Justifications for Admission: Justification of Admission Dx: Yes LORETO LÓPEZ Feb 15, 2021 09:58
[2021-02-15 11:00] VITALS: BP 135/81
--- NOTE | 2021-02-15 12:06 | NUR ---
SW following. Discussed with RN, pt from home with significant other, room air, regular diet, independent. COVID-19 negative. GI following. Med Assist following for self pat status. SW will continue to follow.
[2021-02-15 14:51] VITALS: BP 136/84
[2021-02-15 19:00] VITALS: BP 138/85
[2021-02-15] MEDS: ENOXAPARIN 40 MG/0.4 ML SYRINGE. SQ SCH (20:32)
[2021-02-15 22:11] LABS: HCV ULTRA QUANT PCR 279000 IU/mL (.)
[2021-02-15 23:00] VITALS: BP 137/85
[2021-02-16 03:00] VITALS: BP 144/86
[2021-02-16] MEDS: IV NORMAL SALINE 1000ML BAG 1,000 ML IV SCH (05:16)
[2021-02-16 07:00] VITALS: BP 142/86
[2021-02-16 07:58] LABS: BASO % 1 % (0-3); EOS # 0.3 x10^3/uL (0.0-0.7); EOS % 4 % (0-3); HEMATOCRIT 40.4 % (39.0-53.0); HEMOGLOBIN 13.7 g/dL (13.0-17.5); LYMPH % 46 % (24-48); MEAN CORPUSCULAR HEMOGLOBIN 30 pg (25-35); MEAN CORPUSCULAR HGB CONC 34 g/dL (31-37); MEAN CORPUSCULAR VOLUME 89 fL (79-100); MONO # 0.6 x10^3/uL (0.0-1.1); MONO % 9 % (0-9); NEUT # 2.6 x10^3/uL (1.8-7.7); NEUT % 41 % (31-73); PLATELET COUNT 151 x10^3/uL (140-400); RED BLOOD COUNT 4.56 x10^6/uL (4.30-5.70); RED CELL DISTRIBUTION WIDTH 14.4 % (11.5-14.5); WHITE BLOOD COUNT 6.5 x10^3/uL (4.0-11.0)
[2021-02-16 08:30] LABS: CALCIUM 8.1 mg/dL (8.5-10.1); CREATININE 0.7 mg/dL (0.7-1.3); GFR 121.4; POTASSIUM 4.5 mmol/L (3.5-5.1)
[2021-02-16] MEDS: METHADONE (DAILY MAINT DOSE) 100 MG/100 ML SOLUTION PO SCH (09:00)
[2021-02-16] MEDS: NICOTINE 14MG PATCH. TD PRN (09:39)
[2021-02-16] MEDS: FAMOTIDINE 20 MG/2 ML VIAL IVP SCH (09:39)
--- NOTE | 2021-02-16 10:15 | PDOC ---
Date of Service: DATE: 02/16/21 TIME: 10:12 Subjective: Subjective: Eating better, still doesn't feel "normal" and has fatigue but feels well enough to go home. Significant other says they were hoping to discharge today. Objective: Vital Signs: Vital Signs Date Time Temp Pulse Resp B/P (MAP) Pulse Ox O2 Delivery O2 Flow Rate FiO2 02/16/21 07:00 97.9 68 16 142/86 (104) 97 Room Air 97.9 Labs: Laboratory Tests Test 02/16/21 06:25 White Blood Count 6.5 x10^3/uL Red Blood Count 4.56 x10^6/uL Hemoglobin 13.7 g/dL Hematocrit 40.4 % Mean Corpuscular Volume 89 fL Mean Corpuscular Hemoglobin 30 pg Mean Corpuscular Hemoglobin Concent 34 g/dL Red Cell Distribution Width 14.4 % Platelet Count 151 x10^3/uL Neutrophils (%) (Auto) 41 % Lymphocytes (%) (Auto) 46 % Monocytes (%) (Auto) 9 % Eosinophils (%) (Auto) 4 % Basophils (%) (Auto) 1 % Neutrophils # (Auto) 2.6 x10^3/uL Lymphocytes # (Auto) 3.0 x10^3/uL Monocytes # (Auto) 0.6 x10^3/uL Eosinophils # (Auto) 0.3 x10^3/uL Basophils # (Auto) 0.0 x10^3/uL Sodium Level 141 mmol/L Potassium Level 4.5 mmol/L Chloride Level 107 mmol/L Carbon Dioxide Level 28 mmol/L Anion Gap 6 Blood Urea Nitrogen 7 mg/dL Creatinine 0.7 mg/dL Estimated GFR (Cockcroft-Gault) 121.4 Glucose Level 118 mg/dL Calcium Level 8.1 mg/dL Magnesium Level 2.0 mg/dL PE: GEN: NAD LUNGS: CTAB HEART: RRR ABD: soft, non-tender NEURO/PSYCH: A & O 3 A/P: Vomiting, sweats/chills, upper abdominal soreness - improving Elevated LFTs - unclear cause Hep C Hepatomegaly, hepatic steatosis, splenomegaly COVID negative -- DC per primary - okay w/ GI (confirmed w/ Dr. Pearson). Hep C confirmed. His plan is to get health insurance and follow-up w/ regional director of admissions. EBV and CMV pending - can follow-up outpt re: results. Justicifation of Admission Dx: Justifications for Admission: Justification of Admission Dx: Yes LORETO LÓPEZ Feb 16, 2021 10:15
[2021-02-16 11:00] VITALS: BP 142/93
--- NOTE | 2021-02-16 12:05 | NUR ---
SW following. Discussed with RN, discharge order for home with self care.
--- NOTE | 2021-02-16 13:30 | NUR ---
Discharge Note: AARON FABIAN Discharge instructions and discharge home medications reviewed with Patient and a copy given. All questions have been answered and understanding verbalized. The following instructions and handouts were given: Follow up with PCP, Dr. Pearson, and a collision mechanic. Discontinued IV line. Patient discharged to Home with Self-Care
[2021-02-16 14:52] VITALS: BP 145/88
[2021-02-16 18:11] LABS: EBNA IGG 99.4 U/mL (0.0-17.9)
--- NOTE | 2021-02-16 19:10 | DS ---
DATE OF DISCHARGE: 02/16/2021 ADMITTING DIAGNOSIS: Acute hepatitis. DISCHARGE DIAGNOSES: Resolving acute hepatitis, chronic narcotic dependence (he is on methadone 60 mg a day), new diagnosis of hepatitis C. CONSULTS: GI. PROCEDURES: None. HOSPITAL COURSE: The patient is a pleasant middle-aged male presenting with some jaundice, abdominal pain, nausea, vomiting, hepatomegaly and hepatic steatosis and severe transaminitis. Basically, he tested positive for hep C. We are not sure if that is actually causing the acute phase of his hepatitis. His bilirubin is going down. Clinically, he is less jaundiced. He is doing better over the past couple of days. We have ordered some viral serology, but that is still pending. Clinically, he looks great. I saw and examined him. We are going to discharge to home. I spoke with GI this morning as well. DISPOSITION: Home. ACTIVITY: As tolerated. DIET: Low sodium. MEDICATIONS: Methadone 60 a day, p.r.n. ibuprofen. Total time 32 minutes. KIESHA/KAILASH/DORIS DR: KIESHA/danny TID: [id number]
== END 2021-02-16 15:30 | disposition home or self-care (01) | DRG 442 ==
LOC: ER 06:49 → ED HOLD 10:26 → 5 NORTH 21:53
PROVIDERS: ADMIT Internal Medicine; ATTEND Internal Medicine
DX: B17.10 Acute hepatitis C without hepatic coma (principal); F11.20 Opioid dependence, uncomplicated; R74.01 Elevation of levels of liver transaminase levels; D69.6 Thrombocytopenia, unspecified; E66.9 Obesity, unspecified; E78.5 Hyperlipidemia, unspecified; F15.90 Other stimulant use, unspecified, uncomplicated; F17.210 Nicotine dependence, cigarettes, uncomplicated; F41.9 Anxiety disorder, unspecified; I10 Essential (primary) hypertension; K57.30 Diverticulosis of large intestine without perforation or abscess without bleeding; K76.0 Fatty (change of) liver, not elsewhere classified; N20.0 Calculus of kidney; R04.0 Epistaxis; Z20.822 Contact with and (suspected) exposure to COVID-19; Z80.9 Family history of malignant neoplasm, unspecified; Z83.3 Family history of diabetes mellitus; Z79.899 Other long term (current) drug therapy; E80.6 Other disorders of bilirubin metabolism; Z68.31 Body mass index [BMI] 31.0-31.9, adult
CPT/HCPCS: 36415; 71045; 74177; 76700; 80048; 80053; 80307; 80329; 81001; 82248; 82550; 83690; 83735; 84100; 85025; 85610; 86644; 86645; 86664; 86665; 86703; 86705; 86709; 86803; 87086; 87340; 87426; 87496; 87522; 87798; 96372; 96374; 96375; J1650; J1885; J2405; J3490; J7030; Q9967; U0003; U0005; 99285-25; G0378; G0480